=== PATIENT | male | born 1965 | race Caucasian/White ===

== ENCOUNTER 2020-10-02 19:03 | Emergency (ER) | payer OTHER ==
[~2020-10-02] VITALS: Ht 172.7 cm; Wt 92.6 kg
[2020-10-02] MEDS ORDERED: [UNRECOGNIZED DRUG - CODE] PO (19:12)
[2020-10-02] MEDS ORDERED: CALA240T PO (19:12)
[2020-10-02] MEDS ORDERED: XARE15TA PO (19:13)
[2020-10-02] MEDS ORDERED: NS 1,000 ML IV SCH (20:17)
[2020-10-02] MEDS ORDERED: ASPIRIN 81 MG CHEW TABLET PO ONE (20:30)
--- NOTE | 2020-10-02 20:54 | REPVR ---
PROCEDURE INFORMATION: Exam: XR Chest, 1 View Exam date and time: 10/02/2020 8:33 PM Age: 55 years old Clinical indication: Chest pain TECHNIQUE: Imaging protocol: XR of the chest Views: 1 view. COMPARISON: No relevant prior studies available. FINDINGS: Lungs: Degree of lung inflation is normal. No evidence of pulmonary edema. No focal consolidation or parenchymal lung mass. Pleural space: No pleural effusion or pneumothorax. Heart/Mediastinum: Cardiac silhouette is prominent in size. No adenopathy or hilar mass. Pacemaker is present, with right atrial and right ventricular leads. Bones/joints: Osseous structures show no concerning abnormality. IMPRESSION: Cardiac silhouette enlargement without evidence of active pulmonary edema or focal pneumonia Electronically signed by: Yair Dennis On 10/02/2020 20:54:51 PM
[2020-10-02 21:04] LABS: BASO % 0.3 % (0.0-1.0); HEMOGLOBIN 13.7 g/dl (13.5-17.5); LYMPH # 0.7 10^3/uL (1.5-5.0); MEAN CORPUSCULAR HGB CONC 33.4 g/dl (32.0-36.5); MEAN CORPUSCULAR VOLUME 95.8 fl (80.0-96.0); MONO # 0.9 10^3/uL (0.0-0.8); MONO % 7.8 % (0.0-5.0); NEUTROPHILS # 10.1 10^3/uL (1.5-8.5); PLATELET COUNT, AUTOMATED 206 10^3/uL (150-450); RED BLOOD COUNT 4.28 10^6/uL (4.30-6.10); WHITE BLOOD COUNT 11.9 10^3/uL (4.0-10.0)
[2020-10-02 21:16] LABS: INR 2.03; PROTHROMBIN TIME 23.4 SECONDS (12.5-14.3)
[2020-10-02 21:20] LABS: ALT/SGPT 41 U/L (12-78); BILIRUBIN,DIRECT 0.3 MG/DL (0.0-0.2); BLOOD UREA NITROGEN 17 MG/DL (7-18); CALCIUM LEVEL 8.8 MG/DL (8.5-10.1); CARBON DIOXIDE LEVEL 24 MEQ/L (21-32); CHLORIDE LEVEL 103 MEQ/L (98-107); CK-MB VALUE MASS 8.8 NG/ML (<3.6); CPK CREATINE PHOSPHOKINASE 288 U/L (39-308); CREATININE FOR GFR 1.11 MG/DL (0.70-1.30); GLOMERULAR FILTRATION RATE > 60.0 (>56); GLUCOSE, FASTING 87 MG/DL (70-100); MAGNESIUM LEVEL 1.8 MG/DL (1.8-2.4); MB/CK RELATIVE INDEX 3.06 (< OR =4); NT-PRO BNP 2351 PG/ML (<125); POTASSIUM SERUM 4.7 MEQ/L (3.5-5.1); SODIUM LEVEL 134 MEQ/L (136-145); TOTAL PROTEIN 6.6 GM/DL (6.4-8.2); TROPONIN I < 0.02 NG/ML (< 0.10)
[2020-10-02 21:45] VITALS: BP 132/90
--- NOTE | 2020-10-03 20:33 | ECGEPIP ---
[facility] - ED Test Date: 2020-10-02 Pat Name: SAMI WOODSON Department: Room: - Gender: Male [employer] Machine Operator: [place] : 1965 Requested By: JOELLE Mckeon Order Number: [id number] Reading MD: Tiny Brumfield Measurements Intervals [place] Rate: 81 P: 18 MI: 174 QRS: -10 QRSD: 148 T: 29 QT: 426 QTc: 495 Interpretive Statements SINUS RHYTHM POSSIBLE LEFT ATRIAL ENLARGEMENT RIGHT BUNDLE BRANCH BLOCK NO PRIOR Electronically Signed on 10-03-2020 20:33:00 EST by Tiny Brumfield
== END 2020-10-02 22:02 | disposition home or self-care (01) ==
LOC: M ED 19:03
DX: R00.2 Palpitations (principal); R11.2 Nausea with vomiting, unspecified; I10 Essential (primary) hypertension; I48.91 Unspecified atrial fibrillation; E78.5 Hyperlipidemia, unspecified; Z95.0 Presence of cardiac pacemaker; Z95.1 Presence of aortocoronary bypass graft; Z88.0 Allergy status to penicillin; Z88.2 Allergy status to sulfonamides; Z79.899 Other long term (current) drug therapy; Z79.01 Long term (current) use of anticoagulants